=== PATIENT | male | born 1990 | race Caucasian/White ===

== ENCOUNTER → 2017-10-23 | Outpatient (CLI) | payer BC, OTHER ==
--- NOTE | 2017-10-23 14:05 | Diagnostic Imaging Report ---
CLINICAL INDICATION: Patient with lump on the bottom of the xiphoid x2 weeks. EXAM: Ultrasound of the chest which is localized in the region of the xiphoid process area of concern. COMPARISON: None. FINDINGS AND IMPRESSION: There is a 1.8 cm x 1.4 cm x 0.9 cm nodular area of slight increased echogenicity within the subcutaneous fat to the right of the sternum in the area of concern. There is no associated Doppler flow in this area. This finding is nonspecific. Considerations may include hematoma or inflammatory process. Suggest clinical correlation for resolution. Dictated by: Dictated on workstation # [id number]
== END ==
LOC: RAD 08:29
PROVIDERS: ATTEND Nurse Practitioner Family
DX: R22.2 Localized swelling, mass and lump, trunk (principal)
CPT/HCPCS: 76604